=== PATIENT | male | born 1990 | race Caucasian/White ===

== ENCOUNTER 2018-01-14 14:27 | Inpatient (IN) | payer SELFPAY ==
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
--- NOTE | 2018-01-14 16:42 | PDCONSULT ---
[employer] Note: #[id number] Trauma Admit note dictated S MD Maryana, FACS
[2018-01-14] MEDS ORDERED: HYDROmorphONE/DILAUDID 1 MG/ML INJ IVP PRN (16:46)
[2018-01-14] MEDS ORDERED: DIAZEPAM 5 MG/ML 1 ML SYR IVP ONE (16:46)
--- NOTE | 2018-01-14 16:52 | ASMTLACE ---
CINDY Acuity / Level of Answers: Yes Care: Did the patient have an inpatient admission? # of Emergency department Answers: 1-2 visits in the last 6 months Score: 4 Date Signed: 01/14/2018 04:52 PM Electronically Signed By:Cheri Lara RN
[2018-01-14] MEDS ORDERED: LR 1,000 ML IV SCH (17:00)
[2018-01-14] MEDS ORDERED: HYDROmorphONE/DILAUDID 1 MG/ML INJ IVP ONE (17:42)
[2018-01-14] MEDS ORDERED: HYDROmorphONE/DILAUDID 2 MG/ML INJ ONE (18:03)
[2018-01-14] MEDS ORDERED: ONDANSETRON 4 MG/2 ML VIAL ONE (18:03)
[2018-01-14] MEDS ORDERED: ONDANSETRON 4 MG/2 ML VIAL IVP ONE (18:04)
[2018-01-14] MEDS ORDERED: NS 1,000 ML IV ONE (18:04)
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
[2018-01-14 19:10] LABS: PLATELET COUNT 257 10^3/uL (150-400)
[2018-01-14] MEDS: HYDROmorphONE/DILAUDID 2 MG/ML INJ IVP PRN (20:32)
[2018-01-14] MEDS: CYCLOBENZAPRINE 10 MG TAB PO PRN (20:32)
[2018-01-15 01:43] LABS: PLATELET COUNT 109 10^3/uL (150-400)
[2018-01-15] MEDS: HYDROmorphONE/DILAUDID 2 MG/ML INJ IVP PRN ×2 (02:59→05:07)
[2018-01-15] MEDS: CYCLOBENZAPRINE 10 MG TAB PO PRN ×3 (03:00→18:26)
[2018-01-15] MEDS: DIAZEPAM 5 MG TAB PO PRN ×2 (05:28→21:39)
[2018-01-15] MEDS: oxyCODONE IR 5 MG TAB PO PRN ×3 (05:28→15:54)
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
[2018-01-15 09:28] LABS: PLATELET COUNT 178 10^3/uL (150-400)
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
[2018-01-16] MEDS: oxyCODONE IR 5 MG TAB PO PRN ×7 (00:34→22:22)
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
[2018-01-16] MEDS ORDERED: FLU VACC QS 2017-18 (3YR+)/PF 0.5 ML SYR (FLUARIX QUAD) IM ONE (09:16)
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
[2018-01-16] MEDS: DOCUSATE SODIUM 100 MG CAP PO SCH ×2 (14:31→22:22)
[2018-01-16] MEDS: CYCLOBENZAPRINE 10 MG TAB PO PRN (17:03)
[2018-01-16] MEDS ORDERED: DOCUSATE SODIUM 100 MG CAP PO SCH (21:00)
[2018-01-17] MEDS: oxyCODONE IR 5 MG TAB PO PRN ×6 (06:24→22:34)
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
[2018-01-17] MEDS: HYDROmorphONE/DILAUDID 2 MG/ML INJ IVP PRN ×3 (08:14→17:01)
[2018-01-17] MEDS: DOCUSATE SODIUM 100 MG CAP PO SCH (08:14)
[2018-01-17] MEDS: CYCLOBENZAPRINE 10 MG TAB PO PRN (08:27)
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
[2018-01-17] MEDS ORDERED: BISACODYL 10 MG SUPP PR PRN (18:20)
[2018-01-17] MEDS ORDERED: POLYETHYLENE GLYCOL 3350 17 GM PKT PO PRN (18:20)
[2018-01-17] MEDS ORDERED: MAGNESIUM HYDROXIDE 30 ML UDCUP PO PRN (18:20)
[2018-01-17] MEDS ORDERED: LACTULOSE 20 GM/30 ML UDCUP PO PRN (18:20)
[2018-01-17] MEDS: SENNOSIDES/DOCUSATE SODIUM TAB PO SCH (22:34)
[2018-01-18] MEDS: oxyCODONE IR 5 MG TAB PO PRN ×4 (06:06→18:04)
[2018-01-18] MEDS: SENNOSIDES/DOCUSATE SODIUM TAB PO SCH (08:02)
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
--- NOTE | 2018-01-18 09:54 | PDIAF ---
- Diagnosis Code Status: Full Code - Medication Management Discharge Medications: Medications to Continue on Transfer Polyethylene Glycol 3350 [Miralax 17 gm (*)] 17 gm PO DAILY PRN pkt 01/18/18 [ Last Taken Unknown] Sennosides/Docusate Sodium [Senokot-S] 1 - 2 tab PO BID tab 01/18/18 [Last Taken Unknown] oxyCODONE IR [Oxycodone Ir (*)] 5 - 10 mg PO Q3 PRN 30 Days tab 01/18/18 [Last Taken Unknown] Discharge Medications: Refer to the Discharge Home Medication list for PRN reason. - Orders Services needed: Home Care, Physical Therapy, Occupational Therapy Home Care Face to Face: I certify that this patient was under my care and that I had the required [id number] encounter meeting the encounter requirements on the discharge day. My findings support the fact that the patient is homebound as defined in Home Care Face to Face Continued: CMS Chapter 7 Medicare Benefits Manual 30.1.1 , The condition of the patient is such that there exists a normal inability to leave home and consequently, leaving home would require a considerable and taxing effort. Isolation Type: None Diet Recommendation: no restrictions on diet Diet Texture: Regular Texture Diet Little: No Activity/Weight Bearing Restrictions: Do not lift over 10 lbs. Must have brace on at all times, unless lying in bed with HOB less than 30 degrees - Follow Up Care Current Providers and Referrals: Kamaljit Randolph MD [Medical Doctor] - (Follow up in 4 weeks. xrays to be done) Patient,NotPresent [Unknown] - As per Instructions Colt Gerardo MD [Medical Doctor] - follow up in 1 week
[2018-01-18] MEDS: CYCLOBENZAPRINE 10 MG TAB PO PRN (10:21)
[2018-01-18 11:42] VITALS: BP 120/75; PULSE 70; RESP 16; TEMP 99.1; O2SAT 94
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
--- NOTE | 2018-01-18 16:34 | ASMTCMCOM ---
CM Note CM Note Notes: Med Data staff assessed pt is over income for Medicaid, pt referred to financial counseling. Pt has an extensive support system, he will d/c to a friend's home in [place]. This CM provided pt w information on skilled home care agencies pt can contact for a private pay contract since pt has no payer source. Date Signed: 01/18/2018 04:33 PM Electronically Signed By:TYLER Hidalgo
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
== END 2018-01-18 19:08 | disposition home or self-care (01) | DRG 551 ==
LOC: EDUNIT# → F2N 19:52 → OBSVTOIN 01-15 12:01 → F3N 01-16 16:50
PROVIDERS: ADMIT Surgery; ATTEND Surgery
PROC: 0HQ1XZZ Repair Face Skin, External Approach (ICD-10-PCS; principal; 2018-01-15)
PROC: 0CQ4XZZ Repair Buccal Mucosa, External Approach (ICD-10-PCS; principal; 2018-01-15)
DX: S22.062A Unstable burst fracture of T7-T8 vertebra, initial encounter for closed fracture (principal); S06.4X0A Epidural hemorrhage without loss of consciousness, initial encounter; S22.050A Wedge compression fracture of T5-T6 vertebra, initial encounter for closed fracture; S01.512A Laceration without foreign body of oral cavity, initial encounter; S01.112A Laceration without foreign body of left eyelid and periocular area, initial encounter; S01.81XA Laceration without foreign body of other part of head, initial encounter; S01.412A Laceration without foreign body of left cheek and temporomandibular area, initial encounter; V18.0XXA Pedal cycle driver injured in noncollision transport accident in nontraffic accident, initial encounter; Y93.55 Activity, bike riding; Y92.828 Other wilderness area as the place of occurrence of the external cause; Z23 Encounter for immunization
CPT/HCPCS: 92507-GN; 92523-GN; 97116-GP; 97161-GP; 97165-GO; 97530-GO; 97530-GP; 97535-GO; G0378; J1170; J2405; J3360